=== PATIENT | female | born 1985 | race African-American/Black ===

== ENCOUNTER 2017-10-16 20:53 | Emergency (ER) | payer SELFPAY ==
[~2017-10-16] VITALS: Ht 162.6 cm; Wt 103.6 kg
[~2017-10-16 20:53] MED LIST: ULTRAM50 M1 PO
[2017-10-16 23:25] VITALS: BP 128/63
== END 2017-10-16 23:32 | disposition home or self-care (01) | DRG 781 ==
LOC: ED 20:53
DX: O26.891 Other specified pregnancy related conditions, first trimester (principal); R10.30 Lower abdominal pain, unspecified; Z3A.01 Less than 8 weeks gestation of pregnancy; W10.9XXA Fall (on) (from) unspecified stairs and steps, initial encounter; Y92.009 Unspecified place in unspecified non-institutional (private) residence as the place of occurrence of the external cause